=== PATIENT | female | born 1985 | race Asian ===

== ENCOUNTER 2024-02-04 18:53 | Emergency (ER) | payer SELFPAY ==
[2024-02-04 19:34] VITALS: BP 115/64; O2SAT 100
--- NOTE | 2024-02-04 19:42 | ED Physician Documentation ---
History of Present Illness - Stated complaint Stated Complaint: L ANKLE INJ - Chief complaint Chief Complaint: Trauma Ext - Additonal information Additional information: 38-year-old female presents emergency department after accidentally inversely rolling her left ankle. She has significant pain to the left lateral malleolus she is able to ambulate but it is painful. .There is swelling to the left lateral malleolus no open wounds. No knee pain. PD PAST MEDICAL HISTORY - Past Surgical History Past Surgical History: No - Allergies Allergies/Adverse Reactions: Allergies Allergy/AdvReac Type Severity Reaction Status Date / Time No Known Drug Allergies Allergy Verified 02/04/24 19:20 - Social History Does the pt smoke?: No Smoking Status: Never smoker Does the pt drink ETOH?: No Does the pt have substance abuse?: No - Immunizations Immunizations are current?: No PD ED PE NORMAL - Vitals Vital signs reviewed: Yes - General General: Alert and oriented X 3, No acute distress, Well developed/nourished - Derm Derm: Normal color, Warm and dry, No rash - Extremities Extremities: No calf tenderness / cord (Left lower extremity: Normal range of motion to left knee. Left ankle tenderness with flexion extension swelling to the left lateral malleolus CMS intact strong dorsalis pedis pulse.), Other Results - Vitals Vitals: Vital Signs - 24 hr 02/04/24 02/04/24 19:20 20:27 Temperature 36.7 C 36.7 C Heart Rate 72 72 Respiratory 14 14 Rate Blood Pressure 115/64 115/64 O2 Saturation 100 100 Oxygen O2 Source Room air - Rads (name of study) Left ankle x-ray Relevant Findings:: Final report received, EMP independent interpretation of test, Other (No acute bony abnormalities or findings no fractures.) PD Medical Decision Making - ED course ED course: 38-year-old female presents emergency department for left lateral malleolus pain or tenderness as well as swelling. X-rays are complete for further evaluation of possible fracture and there were no acute bony abnormalities or findings at this point time. Patient was likely sprained her ankle. She is offered Tylenol ibuprofen in the ER she kindly declined. She was given an Aircast she was offered crutches but also declined. She is told to follow the primary care provider as needed Departure - Departure Disposition: 01 Home, Self Care Clinical Impression: Left ankle sprain Instructions: ED Sprain Ankle, ED Splint Ankle Stirrup Comments: Thank you for trusting us with your care. You have most likely sprained your left ankle. We have completed x-rays and we do not see any fractures or other acute bony abnormalities or findings. Please follow-up with your primary care provider as needed.You can wear the Aircast for the next 6 weeks as needed for pain and discomfort as we discussed is important to start using and ambulating that left ankle as research has showed that the more you can start ambulating on a sprained ankle the quicker will heal and recover. You can alternate between Tylenol ibuprofen for pain and discomfort. As we discussed there are rare times where you may need repeat x-rays or imaging as the first x-rays Do not reveal any fractures and sometimes it takes 7 to 10 days for any fractures. Forms: PCP List Discharge Date/Time: 02/04/24 20:28
--- NOTE | 2024-02-04 19:55 | XRAY Report ---
PROCEDURE: Ankle 3+V LT INDICATIONS: truama TECHNIQUE: 3 views of the ankle were acquired. COMPARISON: None. FINDINGS: Bones: No fractures or dislocations. Ankle mortise is normally aligned. No suspicious bony lesions . Soft tissues: No tibiotalar joint effusion. Achilles tendon appears normal. IMPRESSION: No visualized acute fracture or dislocation. However, occult injury cannot be excluded. Recommend adelaida rt interval imaging follow-up in 7-10 days as clinically indicated for additional evaluation. Reviewed by: Sabine Baca MD on 02/04/2024 7:53 PM PDT Approved by: Sabine Baca MD on 02/04/2024 7:53 PM PDT Station ID: [id number]
== END 2024-02-04 20:28 | disposition home or self-care (01) ==
LOC: ED 18:53
DX: S93.402A Sprain of unspecified ligament of left ankle, initial encounter (principal); X50.1XXA Overexertion from prolonged static or awkward postures, initial encounter
CPT/HCPCS: 99283